=== PATIENT | female | born 1990 | race Caucasian/White ===

== ENCOUNTER 2016-08-10 10:37 | Inpatient (IN) | payer OTHER ==
[~2016-08-10] VITALS: Ht 167.6 cm; Wt 84.5 kg
[2016-08-10] VITALS (15 sets, daily range): BP systolic 99–135; BP diastolic 57–88; PULSE 71–94; RESP 16–19; Ht 167.6 cm; Wt 84.5 kg
[~2016-08-10 10:37] MED LIST: DENIES MEDS; IBUP800T25 PO
[2016-08-10] MEDS ORDERED: LACTATED RINGER'S 1,000 ML IV SCH (10:40)
[2016-08-10] MEDS ORDERED: METHYLERGONOVINE 0.2 MG INJ IM PRN ×2 (11:00→21:00)
[2016-08-10] MEDS ORDERED: CEFAZOLIN 2 GM/50 ML (PMX) 50 ML IV SCH (11:00)
[2016-08-10] MEDS ORDERED: CARBOPROST 250 MCG INJ IM PRN ×2 (11:00→21:00)
[2016-08-10] MEDS ORDERED: OXYTOCIN 30 UNITS/LR 500 ML IV SCH (11:00)
[2016-08-10] MEDS ORDERED: OXYTOCIN 30 UNITS/LR 500 ML IV PRN ×2 (11:00→21:00)
[2016-08-10] MEDS ORDERED: MISOPROSTOL 200 MCG TAB PR PRN ×2 (11:00→21:00)
[2016-08-10] MEDS ORDERED: DEXAMETHASONE 4 MG/ML 1 ML INJ ONE (11:29)
[2016-08-10] MEDS ORDERED: METOCLOPRAMIDE 10 MG INJ ONE (11:29)
[2016-08-10] MEDS ORDERED: morphine SULFATE/PF (10 MG/10 ML) INJ ONE (11:29)
[2016-08-10] MEDS ORDERED: KETOROLAC 30 MG INJ ONE (11:29)
[2016-08-10] MEDS ORDERED: OXYTOCIN 10 UNIT INJ ONE (11:29)
[2016-08-10] MEDS ORDERED: PHENYLephrine (100 MCG/ML) 5ML SYG ONE ×4 (11:29→16:14)
[2016-08-10] MEDS ORDERED: ONDANSETRON 4 MG INJ ONE (11:29)
[2016-08-10 11:42] LABS: ADD SCAN DIFF NO
[2016-08-10 11:58] LABS: INR 0.91; PROTIME 12.3 Sec (12.2-14.2)
[2016-08-10 12:00] LABS: PARTIAL THROMBOPLASTIN TIME 29.7 Sec (25.0-35.0)
[2016-08-10 12:12] LABS: BASOPHILS % 0.3 % (0.0-2.0); EOSINOPHILS # 0.1 10^3/ul (0.0-0.5); EOSINOPHILS % 0.7 % (0.0-7.0); HEMATOCRIT 36.2 % (37.0-47.0); HEMOGLOBIN 11.6 g/dl (12.0-16.0); LYMPHOCYTES # 2.7 10^3/ul (0.8-2.9); LYMPHOCYTES % 30.4 % (15.0-51.0); MEAN CORPUSCULAR HEMOGLOBIN 28.4 pg (29.0-33.0); MEAN CORPUSCULAR VOLUME 88.5 fl (82.0-101.0); MEAN PLATELET VOLUME 10.3 fl (7.4-10.4); MONOCYTE # 0.7 10^3/ul (0.3-0.9); MONOCYTES % 7.4 % (0.0-11.0); NEUTROPHIL # 5.4 10^3/ul (1.6-7.5); NEUTROPHILS % 60.9 % (39.0-77.0); PLATELET COUNT 300 10^3/UL (140-415); RED BLOOD COUNT 4.09 10^6/ul (4.20-5.40); RED CELL DISTRIBUTION WIDTH 15.7 % (11.5-14.5); WHITE BLOOD COUNT 8.9 10^3/ul (4.8-10.8)
[2016-08-10] MEDS ORDERED: ONDANSETRON 4 MG INJ IV STA (13:22)
[2016-08-10] MEDS ORDERED: CITRIC ACID/NA CITRATE 30 ML CUP PO ONE (13:30)
[2016-08-10 14:10] LABS: BARBITURATES Negative (NEGATIVE); BENZODIAZEPINES Negative (NEGATIVE); CANNABINOIDS Negative (NEGATIVE)
[2016-08-10 14:12] LABS: COCAINE Negative (NEGATIVE); OPIATES Negative (NEGATIVE)
[2016-08-10] MEDS ORDERED: NALOXONE (0.4 MG/ML) INJ IV PRN (16:30)
[2016-08-10] MEDS ORDERED: ONDANSETRON 4 MG INJ IV PRN (16:30)
[2016-08-10] MEDS ORDERED: HYDROmorphONE 1 MG/ML SYG IV PRN ×2 (16:30)
[2016-08-10] MEDS ORDERED: morphine 2 MG INJ IV PRN (16:30)
[2016-08-10] MEDS ORDERED: PROCHLORPERAZINE 10 MG INJ IV PRN (16:30)
[2016-08-10] MEDS ORDERED: morphine 4 MG/ML VIAL IV PRN (16:30)
[2016-08-10] MEDS: DIPHENHYDRAMINE 50 MG INJ IV PRN (17:16)
--- NOTE | 2016-08-10 17:41 | HP ---
Date/Time of Note Date/Time of Note DATE: 08/10/16 TIME: 17:39 OB - History Hx of Present Free Text/Dictation admitted for repeat C/S at term Last Menstrual Period: Jan 23, 2016 Estimated Due Date: Aug 09, 2016 : 2 Para: 1 Care: Good Care Ultrasounds: Normal mid trimester US Obstetrical Complications: None Medical Complications: None Past Family/Social History * Past Medical, Surgical, Family and Obstetric Histories reviewed from chart. Blood Type: O+ Rubella: immune RPR/VDRL: Negative GBS Status: Negative HBsAG: Negative OB Admission Exam Vital Signs Vital Signs Vital Signs Date Time Temp Pulse Resp B/P Pulse Ox O2 Delivery O2 Flow Rate FiO2 08/10/16 16:55 77 16 113/72 100 Room Air 08/10/16 16:40 97.7 Physical Exam HEENT: WNL Heart: Rhythm Normal Lungs: Clear, Equal Abdomen: WNL Extremities: Normal Reflexes: Normal Cervical Dilatation: None Effacement: 0% Station: -3 Membranes: Intact Heart Rate: 140's Accelerations: Accelerations Present Decelerations: No Decelerations Varibility: Moderate Contractions on Admission: None Last 72 hours Lab Results CBC & BMP 08/10/16 10:45 OB Assessment/Plan Other Assessment: term gestation previous C/S X 1 Other plan: repeat C/S JERARDO LOPES MD Aug 10, 2016 17:41
--- NOTE | 2016-08-10 17:45 | OPR ---
Operative Report Planned Procedure Procedure date Aug 10, 2016 Procedure(s) repeat C/S Performed by: JERARDO LOPES MD Assisting provider: JANNA CHRISTINE MD Anesthesiologist: CHRIS BALDERRAMA MD Pre-procedure diagnosis term gestation previous C/S X 1 Anesthesia Type: spinal Procedure Description Under satisfactory anaesthesia a Pfannenstiel incision was made two fingerbreadth above and parallel to the symphysis of pubis around the previous scar and previous scar was removed Incision was extended laterally to the border of the Recti muscles on either sides. Incision was carried down with sharp and blunt dissection until fascia was reached. Anterior Recti muscle fascia was incised in mid portion and incision extended laterally to the border of skin incision. Fascia was mobilized from muscle superiorly and Recti muscles were from midline using sharp and blunt dissection. Peritoneum was visualized; Avoiding bowel and bladder it was incised . Incision was extended superiorly and inferiorly. Bladder blade was placed. Posterior peritoneum covering the lower segment of the uterus and lower segment of the uterus were incised.Low transverse uterine incision was made on lower segment of the uterus. Incision extended laterally to the border of Round Lig. on either sides and baby was delivered from OT. position . Amniotic fluid appeared clear. Cord blood was obtained and cord had 3 vessels . Placenta was delivered spontaneously and appeared intact and complete. Intrauterine cavity was rubbed with a laparotomy sponge. Uterine incision was closed in 2 layers using running stitches of No1 Monocryl. Hemostasis appeared secure. Ovaries and Fallopian tubes were within normal limits. Announcing needle, lap sponge and instrument count to be correct abdomen was closed in layers as follows: Peritoneum and Recti muscles with running stitches of 20 Vicryl. Fascia with running stitch of No 1 PDS. Subcutaneous tissue with running stitches of 20 Chromic and skin was closed using suzan. Patient tolerated the procedure well and was transferred to [facility] in good condition. Post-Procedure Post-procedure diagnosis S/P C/S Findings: Live Baby Specimen removed: No Complications: None Pt Condition post procedure: stable Disposition: PACU Physician Certification I, the undersigned physician, hereby certify that I have discussed the procedure described in this consent form with this patient (or the patient's legal access services representative), including: * The risk and benefits of the procedure; * Any adverse reactions that may reasonably be expected to occur; * Any alternative efficacious methods of treatment which may be medically viable ; * The potential problems that may occur during recuperation; * Potential for blood transfusion and associated risks/benefits; and * Any research or economic interest I may have regarding this treatment. I further certify that the patient/legally responsible person was encouraged to ask question and that all questions were answered. JERARDO LOPES MD Aug 10, 2016 17:45
[2016-08-10] MEDS: LACTATED RINGER'S 1,000 ML IV SCH ×2 (20:40→23:30)
[2016-08-10] MEDS ORDERED: NA PHOSPHATE/BIPHOS 133 ML ENEMA PR PRN (21:00)
[2016-08-10] MEDS ORDERED: ACETAMINOPHEN/CODEINE #3 TAB PO PRN (21:00)
[2016-08-10] MEDS ORDERED: LANOLIN 7 GM TUBE TOP PRN (21:00)
[2016-08-10] MEDS: CEFAZOLIN 2 GM/50 ML (PMX) 50 ML IV SCH (21:57)
[2016-08-10] MEDS: SENNA/DOCUSATE NA (8.6MG/50MG) TAB PO SCH (21:57)
[2016-08-10] MEDS: KETOROLAC 30 MG INJ IV PRN (22:25)
[2016-08-10] MEDS: CLINDAMYCIN 300 MG CAP PO SCH (23:46)
[2016-08-11] MEDS: DIPHENHYDRAMINE 50 MG INJ IV PRN (01:19)
[2016-08-11 03:45] VITALS: BP 123/70; PULSE 91; RESP 18
[2016-08-11] MEDS: CEFAZOLIN 2 GM/50 ML (PMX) 50 ML IV SCH ×2 (05:14→12:27)
[2016-08-11] MEDS: CLINDAMYCIN 300 MG CAP PO SCH ×4 (05:14→23:40)
[2016-08-11 06:25] VITALS: BP 124/66; PULSE 80; RESP 18
[2016-08-11] MEDS: SENNA/DOCUSATE NA (8.6MG/50MG) TAB PO SCH ×2 (08:24→20:15)
[2016-08-11] MEDS: LACTATED RINGER'S 1,000 ML IV SCH ×2 (08:24→20:40)
[2016-08-11] MEDS: KETOROLAC 30 MG INJ IV PRN (08:25)
[2016-08-11 08:30] VITALS: BP 107/64; PULSE 84; RESP 18
[2016-08-11 08:50] LABS: ADD SCAN DIFF NO
[2016-08-11 08:59] LABS: BASOPHILS % 0.3 % (0.0-2.0); EOSINOPHILS % 0.1 % (0.0-7.0); HEMATOCRIT 30.6 % (37.0-47.0); HEMOGLOBIN 9.9 g/dl (12.0-16.0); LYMPHOCYTES # 2.8 10^3/ul (0.8-2.9); LYMPHOCYTES % 20.1 % (15.0-51.0); MEAN CORPUSCULAR HEMOGLOBIN 28.8 pg (29.0-33.0); MEAN CORPUSCULAR HGB CONC 32.4 g/dl (32.0-37.0); MEAN PLATELET VOLUME 10.4 fl (7.4-10.4); MONOCYTE # 0.9 10^3/ul (0.3-0.9); MONOCYTES % 6.1 % (0.0-11.0); NEUTROPHIL # 10.2 10^3/ul (1.6-7.5); PLATELET COUNT 280 10^3/UL (140-415); RED BLOOD COUNT 3.44 10^6/ul (4.20-5.40); RED CELL DISTRIBUTION WIDTH 14.9 % (11.5-14.5); WHITE BLOOD COUNT 13.9 10^3/ul (4.8-10.8)
[2016-08-11] MEDS ORDERED: BISACODYL 10 MG SUPP PR ONE (09:00)
[2016-08-11 12:00] VITALS: BP 100/62; PULSE 83; RESP 19
[2016-08-11 15:20] VITALS: BP 101/57; PULSE 84; RESP 18
[2016-08-11] MEDS: OXYCODONE/ACETAMINOPHEN (5/325) TAB PO PRN ×2 (15:54→20:15)
--- NOTE | 2016-08-11 16:41 | PN ---
Date/Time of Note Date/Time of Note DATE: 08/11/16 TIME: 16:39 Assessment/Plan VTE Prophylaxis VTE Prophylaxis Intervention: ambulation Lines/Catheters IV Catheter Type (from Nrsg): Peripheral IV Assessment/Plan Assessment/Plan POD # 1 S/P C/S will advance diet and ambulate Subjective 24 Hr Interval Summary NO BM Passing flatus Constitutional: BM, ambulates, flatus, improved, no complaints, urine output Pain Control: well controlled Exam/Review of Systems Vital Signs Vitals Vital Signs Date Time Temp Pulse Resp B/P Pulse Ox O2 Delivery O2 Flow Rate FiO2 08/11/16 15:20 98.3 84 18 101/57 Room Air 08/10/16 19:30 99 Intake and Output 08/10/16 08/10/16 08/11/16 15:00 23:00 07:00 Intake Total 250 ml 950 ml Output Total 600 ml 250 ml 550 ml Balance -600 ml 0 ml 400 ml Exam Free Text/Dictation abdomen: soft BS + Incision: covered Constitutional: alert, oriented, well developed Psych: nl mood/affect, no complaints Head: atraumatic, normocephalic Eyes: EOMI, nl conjunctiva, nl lids, nl sclera ENMT: mucosa pink and moist, nl external ears & nose, nl lips & teeth, nl nasal mucosa & septum Neck: non-tender, supple Respiratory: clear to auscultation, normal air movement Cardiovascular: nl pulses, regular rate and rhythm Gastrointestinal: nl liver, spleen, non-tender, soft Musculoskeletal: nl extremities to inspection, nl gait and stance Extremities: normal pulses 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
[2016-08-11 20:15] VITALS: BP 107/62; PULSE 86; RESP 18
[2016-08-11] MEDS: IBUPROFEN 800 MG TAB PO SCH (21:49)
[2016-08-12] MEDS: OXYCODONE/ACETAMINOPHEN (5/325) TAB PO PRN ×2 (03:48→20:33)
[2016-08-12 03:50] VITALS: BP 102/58; PULSE 85; RESP 18
[2016-08-12] MEDS: LACTATED RINGER'S 1,000 ML IV SCH (04:40)
[2016-08-12] MEDS: IBUPROFEN 800 MG TAB PO SCH ×3 (05:59→22:27)
[2016-08-12] MEDS: CLINDAMYCIN 300 MG CAP PO SCH ×4 (05:59→23:42)
[2016-08-12] MEDS: SENNA/DOCUSATE NA (8.6MG/50MG) TAB PO SCH ×2 (08:26→20:32)
[2016-08-12 08:58] VITALS: BP 105/59; PULSE 83; RESP 18
[2016-08-12 10:13] LABS: ADD SCAN DIFF NO
[2016-08-12 10:19] LABS: BASOPHILS % 0.4 % (0.0-2.0); EOSINOPHILS # 0.1 10^3/ul (0.0-0.5); EOSINOPHILS % 1.1 % (0.0-7.0); HEMATOCRIT 30.4 % (37.0-47.0); HEMOGLOBIN 9.6 g/dl (12.0-16.0); LYMPHOCYTES # 2.4 10^3/ul (0.8-2.9); LYMPHOCYTES % 32.2 % (15.0-51.0); MEAN CORPUSCULAR HEMOGLOBIN 28.6 pg (29.0-33.0); MEAN CORPUSCULAR HGB CONC 31.6 g/dl (32.0-37.0); MEAN CORPUSCULAR VOLUME 90.5 fl (82.0-101.0); MEAN PLATELET VOLUME 10.3 fl (7.4-10.4); MONOCYTE # 0.6 10^3/ul (0.3-0.9); MONOCYTES % 8.7 % (0.0-11.0); NEUTROPHIL # 4.2 10^3/ul (1.6-7.5); NEUTROPHILS % 57.2 % (39.0-77.0); PLATELET COUNT 242 10^3/UL (140-415); RED BLOOD COUNT 3.36 10^6/ul (4.20-5.40); RED CELL DISTRIBUTION WIDTH 15.4 % (11.5-14.5); WHITE BLOOD COUNT 7.4 10^3/ul (4.8-10.8)
--- NOTE | 2016-08-12 10:30 | OPPN ---
Date/Time of Note Date/Time of Note DATE: 08/12/16 TIME: 10:30 Post-Anesthesia Notes Post-Anesthesia Note Activity: WNL Respiratory function: WNL Cardiovascular function: WNL Mental status: Baseline Pain reasonably controlled: Yes Hydration appropriate: Yes Nausea/Vomiting absent: Yes CHRIS BALDERRMAA MD Aug 12, 2016 10:30
--- NOTE | 2016-08-12 13:18 | DS ---
Date/Time of Note Date/Time of Note home next day DATE: 08/12/16 TIME: 13:16 Obstetrical Discharge Record Final Diagnosis Final Diagnosis: Term delivered Other Final Diagnosis S/P C/S Section Section: Repeat Condition on Discharge Physical Assessment Last Vitals: see nurses notes Voiding: Yes Bowel Movement: Yes Breast: Soft, non-tender, Filling Fundus: Firm Abdomen and Incision: soft BS + Incision: healing well Episiotomy: NA Calf Tenderness: No Patient Condition: Good JERARDO LOPES MD Aug 12, 2016 13:18
--- NOTE | 2016-08-12 13:19 | DS ---
Date/Time of Note Date/Time of Note DATE: 08/12/16 TIME: 13:18 Discharge Summary Admission/Discharge Info Admit Date/Time Aug 10, 2016 at 10:37 Discharge Date/Time 26 y/o female had repeat C/S Final Diagnosis S/P C/S Patient Condition: Good Procedures C/S Hx of Present Illness 26 y/o female had repeat C/S Hospital Course uncomplicated Home Meds Active Scripts Ibuprofen* (Motrin*) 800 Mg Tab, 800 MG PO Q6H Y for PAIN AND OR ELEVATED TEMP, #30 TAB Prov:DAILY PERALTA DO 06/19/15 Reported Medications [Denies Meds] No Conflict Check 03/25/13 [Denies Meds] No Conflict Check 09/01/10 Follow-up Plan 2-3 days for staple removal Pending Labs Laboratory Tests Test 08/12/16 09:30 White Blood Count 7.410^3/ul (4.8-10.8) Red Blood Count 3.3610^6/ul (4.20-5.40) Hemoglobin 9.6g/dl (12.0-16.0) Hematocrit 30.4% (37.0-47.0) Mean Corpuscular Volume 90.5fl (82.0-101.0) Mean Corpuscular Hemoglobin 28.6pg (29.0-33.0) Mean Corpuscular Hemoglobin Concent 31.6g/dl (32.0-37.0) Red Cell Distribution Width 15.4% (11.5-14.5) Platelet Count 09388^3/UL (140-415) Mean Platelet Volume 10.3fl (7.4-10.4) Neutrophils % 57.2% (39.0-77.0) Lymphocytes % 32.2% (15.0-51.0) Monocytes % 8.7% (0.0-11.0) Eosinophils % 1.1% (0.0-7.0) Basophils % 0.4% (0.0-2.0) Nucleated Red Blood Cells % 0.0/100WBC (0.0-0.0) Neutrophils # 4.210^3/ul (1.6-7.5) Lymphocytes # 2.410^3/ul (0.8-2.9) Monocytes # 0.610^3/ul (0.3-0.9) Eosinophils # 0.110^3/ul (0.0-0.5) Basophils # 0.010^3/ul (0.0-0.1) Nucleated Red Blood Cells # 0.010^3/ul (0.0-0.0) JERARDO LOPES MD Aug 12, 2016 13:19
--- NOTE | 2016-08-12 13:55 | PD.PPDC ---
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
[2016-08-12] MEDS ORDERED: Oxycodone/Acetamin (5/325) PO (13:56)
[2016-08-12] MEDS ORDERED: IBUP800T25 PO ×2 (13:56→13:58)
[2016-08-12 15:19] VITALS: BP 99/60; PULSE 84; RESP 16
[2016-08-12 20:30] VITALS: BP 111/59; PULSE 86; RESP 18
[2016-08-13 04:00] VITALS: BP 98/52; PULSE 83; RESP 18
[2016-08-13] MEDS: CLINDAMYCIN 300 MG CAP PO SCH ×2 (05:44→11:42)
[2016-08-13] MEDS: IBUPROFEN 800 MG TAB PO SCH (05:44)
[2016-08-13 07:35] VITALS: BP 124/70; PULSE 83; RESP 18
[2016-08-13] MEDS ORDERED: DIPHTH/TET/ACEL PERTUSS (ADULT) 0.5 ML VIAL IM* ONE (09:00)
[2016-08-13] MEDS: SENNA/DOCUSATE NA (8.6MG/50MG) TAB PO SCH (09:04)
[2016-08-13] MEDS: OXYCODONE/ACETAMINOPHEN (5/325) TAB PO PRN (09:12)
== END 2016-08-13 13:40 | disposition home or self-care (01) | DRG 766 ==
LOC: L-D 10:37 → PP1 20:00
PROVIDERS: ADMIT Obstetrics & Gynecology; ATTEND Obstetrics & Gynecology
PROC: 10D00Z1 Extraction of Products of Conception, Low, Open Approach (ICD-10-PCS; principal; 2016-08-10 12:30)
DX: O34.211 Maternal care for low transverse scar from previous cesarean delivery (principal); Z37.0 Single live birth; Z3A.38 38 weeks gestation of pregnancy
CPT/HCPCS: 80307; 85025; 85610; 85730; 86592; 86850; 86900; 86901; 87340; 90715; 99464; J0690; J1100; J1200; J1885; J2274; J2370; J2405; J2590; J2765; J7120

== ENCOUNTER 2016-09-25 05:51 | Emergency (ER) | payer OTHER ==
[~2016-09-25] VITALS: Ht 167.6 cm; Wt 85.0 kg
[~2016-09-25 05:51] MED LIST changes: -DENIES MEDS; +Oxycodone/Acetamin (5/325) PO
[2016-09-25 06:00] VITALS: Ht 167.6 cm; Wt 85.0 kg
[2016-09-25] MEDS ORDERED: ONDANSETRON 4 MG INJ IV STA (06:21)
[2016-09-25] MEDS ORDERED: SOD CHLORIDE 0.9% 1,000 ML IV ONE (06:30)
[2016-09-25 06:51] LABS: ADD SCAN DIFF NO
[2016-09-25 06:53] LABS: BASOPHILS % 0.6 % (0.0-2.0); EOSINOPHILS # 0.1 10^3/ul (0.0-0.5); EOSINOPHILS % 1.4 % (0.0-7.0); HEMATOCRIT 39.3 % (37.0-47.0); HEMOGLOBIN 12.7 g/dl (12.0-16.0); LYMPHOCYTES % 56.4 % (15.0-51.0); MEAN CORPUSCULAR HEMOGLOBIN 28.6 pg (29.0-33.0); MEAN CORPUSCULAR HGB CONC 32.3 g/dl (32.0-37.0); MEAN CORPUSCULAR VOLUME 88.5 fl (82.0-101.0); MEAN PLATELET VOLUME 10.1 fl (7.4-10.4); MONOCYTE # 0.4 10^3/ul (0.3-0.9); MONOCYTES % 5.7 % (0.0-11.0); NEUTROPHIL # 2.6 10^3/ul (1.6-7.5); NEUTROPHILS % 35.8 % (39.0-77.0); PLATELET COUNT 285 10^3/UL (140-415); RED BLOOD COUNT 4.44 10^6/ul (4.20-5.40); WHITE BLOOD COUNT 7.1 10^3/ul (4.8-10.8)
[2016-09-25 07:07] LABS: ALBUMIN 4.1 g/dl (3.3-4.9)
[2016-09-25 07:08] LABS: POTASSIUM 4.2 mmol/L (3.5-5.1)
[2016-09-25 07:10] LABS: ALBUMIN/GLOBULIN RATIO 1.2; CREATININE 0.77 mg/dl (0.44-1.00); TOTAL PROTEIN 7.5 g/dl (6.1-8.1)
[2016-09-25 07:11] LABS: CALCIUM 9.7 mg/dl (8.4-10.2)
--- NOTE | 2016-09-25 07:31 | RADRPT ---
PROCEDURE: Abdominal Ultrasound (right upper quadrant). CLINICAL INDICATION: Abdominal pain TECHNIQUE: Multiple real-time longitudinal and transverse images of the right upper quadrant of th e abdomen were acquired utilizing a curved array transducer. Images were reviewed on a high-resoluti on PACS workstation. COMPARISON: None FINDINGS: The liver is normal in size and echogenicity. No focal masses are identified. There is no evidenc e of intra or extrahepatic ductal dilatation. The common bile duct measures 3.2 mm in diameter. Gal lstones are identified within the gallbladder. There is no gallbladder wall thickening. The visualized portions of the pancreas are unremarkable with obscuration of the tail of the pancrea s. No free fluid is identified. There is no evidence of right hydronephrosis or renal calcification. The right kidney measures 9.9 cm in length. The visualized portions of the aorta and inferior vena cava are within normal limits. IMPRESSION: 1. Cholelithiasis. 2. Otherwise unremarkable right upper quadrant ultrasound. RPTAT: AA .Jadon Brown MD, Date Time Electronically viewed and signed by .Jadon Brown MD, MD on 09/25/2016 07:31 .B/
[2016-09-25 08:02] LABS: ADD UMIC YES; URINE BILIRUBIN (Dip) NEGATIVE (NEGATIVE); URINE BLOOD (Dip) NEGATIVE (NEGATIVE); URINE COLOR LT. YELLOW (YELLOW); URINE GLUCOSE (Dip) NEGATIVE (NEGATIVE); URINE KETONES (Dip) NEGATIVE (NEGATIVE); URINE LEUKOCYTE ESTERASE (Dip) 1+ (NEGATIVE); URINE NITRITE (Dip) NEGATIVE (NEGATIVE); URINE TOTAL PROTEIN (Dip) NEGATIVE (NEGATIVE); URINE UROBILINOGEN (Dip) 0.2 E.U./dL (0.1-1.0)
[2016-09-25 08:18] LABS: URINE RBCS NONE SEEN /HPF (0)
[2016-09-25] MEDS ORDERED: HYDR-906 PO (08:38)
[2016-09-25] MEDS ORDERED: ONDA4TAB14 PO (08:38)
[2016-09-25] MEDS ORDERED: DICY10CA60 PO (08:38)
[2016-09-25 08:45] VITALS: BP 114/70; PULSE 76; RESP 20; TEMP 98.3
--- NOTE | 2016-09-25 08:46 | ERD ---
ER Documentation Chief Complaint Date/Time DATE: 09/25/16 TIME: 08:40 Chief Complaint Epigastric pain with vomiting HPI 26-year-old female patient with no significant past medical history presents the ED complaining of epigastric pain associated with vomiting that started 1 week ago. Reports that she had a few episodes of nonbilious nonbloody vomiting. Describes the pain as achy and rates it a 4 out of 10. States that she is a . Denies any fever, chills, shortness of breath, wheezing, cough. Patient reports that her last menses was 2 weeks ago. ROS All systems reviewed and are negative except as per history of present illness. Medications Home Meds Active Scripts Ondansetron (Ondansetron Odt) 4 Mg Tab.rapdis, 4 MG PO Q6H Y for NAUSEA AND/OR VOMITING, #10 TAB Prov:LINNEA GARCIA PA-C 09/25/16 Dicyclomine Hcl* (Bentyl*) 10 Mg Capsule, 10 MG PO QID, #20 CAP Prov:LINNEA GARCIA PA-C 09/25/16 Hydrocodone/Acetaminophen ([place] 5-325 Tablet) 1 Each Tablet, 1 TAB PO QHS Y for PAIN, #7 TAB Prov:LINNEA GARCIA PA-C 09/25/16 Ibuprofen* (Motrin*) 800 Mg Tab, 800 MG PO Q6H Y for PAIN AND OR ELEVATED TEMP, #30 TAB 0 Refills Prov:JERARDO LOPES MD 08/12/16 [Oxycodone/Acetamin (5/325)] 1 TAB TAB No Conflict Check, 2 TAB PO Q4H Y for PAIN LEVEL 6-10, #30 0 Refills Prov:JERARDO LOPES MD 08/12/16 Ibuprofen* (Ibuprofen*) 800 Mg Tablet, 800 MG PO Q8, #20 TAB 0 Refills Prov:JERARDO LOPES MD 08/12/16 Allergies Allergies: Coded Allergies: No Known Allergies (Verified Allergy, Mild, 03/25/13) PMhx/Soc Medical and Surgical Hx: pt denies Medical Hx History of Surgery: Yes (C SECTION) Anesthesia Reaction: No Hx Neurological Disorder: No Hx Respiratory Disorders: No Hx Cardiac Disorders: No Hx Psychiatric Problems: No Hx Miscellaneous Medical Probl: Yes (PT IS CURRENTLY BREAST FEEDING) Hx Alcohol Use: No Hx Substance Use: No Hx Tobacco Use: Yes Smoking Status: Never smoker Physical Exam Vitals Vital Signs Date Time Temp Pulse Resp B/P Pulse Ox O2 Delivery O2 Flow Rate FiO2 09/25/16 08:45 98.3 76 20 114/70 98 Room Air 09/25/16 06:00 96.5 75 20 111/74 100 Physical Exam Const: Ayc-[id number], well-nourished. In no acute distress. Head: Atraumatic, normocephalic Eyes: Normal Conjunctiva without injection. No purulent discharge. ENT: Normal external ear, nose. Moist oropharynx without tonsillar exudates. Non -erythematous pharynx. Uvula midline. No drooling. No trismus. Neck: No cervical midline tenderness. Full range of motion. No meningismus. No cervical lymphadenopathy. No JVD. Resp: Clear to auscultation bilaterally. No wheezing, rhonchi, rales, or crackles. No accessory muscle use. No retractions. Cardio: Regular rate and rhythm. No murmurs, rubs or gallops. Abd: Soft, epigastric and right upper quadrant tenderness, non distended. Normal bowel sounds. No palpable masses. No rebound tenderness. No guarding. Negative McBurney's point. Negative psoas sign. Negative obturator sign. Skin: No petechiae or rashes Back: No midline tenderness. No CVA tenderness. Ext: No cyanosis, or edema. Neur: Awake and alert. Normal gait. Normal coordination. Psych: Normal Mood and Affect Result Diagram: 09/25/16 0630 09/25/16 0630 Results 24 hrs Laboratory Tests Test 09/25/16 06:30 White Blood Count 7.110^3/ul Red Blood Count 4.4410^6/ul Hemoglobin 12.7g/dl Hematocrit 39.3% Mean Corpuscular Volume 88.5fl Mean Corpuscular Hemoglobin 28.6pg Mean Corpuscular Hemoglobin Concent 32.3g/dl Red Cell Distribution Width 13.0% Platelet Count 79575^3/UL Mean Platelet Volume 10.1fl Neutrophils % 35.8% Lymphocytes % 56.4% Monocytes % 5.7% Eosinophils % 1.4% Basophils % 0.6% Nucleated Red Blood Cells % 0.0/100WBC Neutrophils # 2.610^3/ul Lymphocytes # 4.010^3/ul Monocytes # 0.410^3/ul Eosinophils # 0.110^3/ul Basophils # 0.010^3/ul Nucleated Red Blood Cells # 0.010^3/ul Urine Color LT. YELLOW Urine Clarity CLEAR Urine pH 6.0 Urine Specific [place] >=1.030 Urine Ketones NEGATIVE Urine Nitrite NEGATIVE Urine Bilirubin NEGATIVE Urine Urobilinogen 0.2 E.U./dL Urine Leukocyte Esterase 1+ Urine Microscopic RBC NONE SEEN/HPF Urine Microscopic WBC 5-10/HPF Urine Epithelial Cells FEW Urine Hemoglobin NEGATIVE Urine Glucose NEGATIVE% Urine Total Protein NEGATIVE Sodium Level 141mmol/L Potassium Level 4.2mmol/L Chloride Level 100mmol/L Carbon Dioxide Level 30mmol/L Anion Gap 15 Blood Urea Nitrogen 16mg/dl Creatinine 0.77mg/dl Glucose Level 87mg/dl Calcium Level 9.7mg/dl Total Bilirubin 0.0mg/dl Direct Bilirubin 0.00mg/dl Indirect Bilirubin 0.0mg/dl Aspartate Amino Transf (AST/SGOT) 149IU/L Alanine Aminotransferase (ALT/SGPT) 276IU/L Alkaline Phosphatase 120IU/L Total Protein 7.5g/dl Albumin 4.1g/dl Globulin 3.40g/dl Albumin/Globulin Ratio 1.20 Lipase 164U/L Current Medications Medications (Trade) Dose Ordered Sig/John Route PRN Reason Start Time Stop Time Status Last Admin Dose Admin Sodium Chloride (NS) 1,000 ml @ 1,000 mls/hr Q1H ONCE IV 09/25/16 06:30 09/25/16 07:29 DC 09/25/16 06:47 Ondansetron HCl (Zofran Inj) 4 mg ONCE STAT IV 09/25/16 06:21 09/25/16 06:24 DC 09/25/16 06:47 Procedures/MDM This is a 26-year-old female patient with no significant past medical history presents to the ED complaining of epigastric pain associated with vomiting. Patient is afebrile and nontoxic-appearing. Patient has normal vital signs. Patient has epigastric and right upper quadrant tenderness, patient was further worked up with CBC, CMP, lipase, UA, urine , gallbladder ultrasound. Patient's pain and symptoms have improved after treatment with 4 mg IV Zofran, 1 L normal saline. CBC: No leukocytosis. No e/o of systemic infection. No e/o anemia. CMP: No e/o severe acidosis, alkalosis, renal failure, diabetic ketoacidosis, liver disease Lipase within normal limits. Urine: No leukocyte esterase, no nitrites, no hematuria. Urine : negative PROCEDURE: Abdominal Ultrasound (right upper quadrant). CLINICAL INDICATION: Abdominal pain TECHNIQUE: Multiple real-time longitudinal and transverse images of the right upper quadrant of the abdomen were acquired utilizing a curved array transducer. Images were reviewed on a high-resolution PACS workstation. COMPARISON: None FINDINGS: The liver is normal in size and echogenicity. No focal masses are identified. There is no evidence of intra or extrahepatic ductal dilatation. The common bile duct measures 3.2 mm in diameter. Gallstones are identified within the gallbladder. There is no gallbladder wall thickening. The visualized portions of the pancreas are unremarkable with obscuration of the tail of the pancreas. No free fluid is identified. There is no evidence of right hydronephrosis or renal calcification. The right kidney measures 9.9 cm in length. The visualized portions of the aorta and inferior vena cava are within normal limits. IMPRESSION: 1. Cholelithiasis. 2. Otherwise unremarkable right upper quadrant ultrasound. Patient has cholelithiasis. No leukocytosis. No elevated bilirubin. Slightly elevated liver enzymes. This could be nonspecific and could be secondary to fatty liver. Low suspicion for choledocholithiasis, cholecystitis, pancreatitis , gallstone pancreatitis, or other emergent conditions. A differential diagnosis considered includes but is not limited to gastritis, GERD, peptic ulcer disease, cholecystitis, choledocholithiasis, cholangitis, pancreatitis, appendicitis, bowel obstruction, ileus, volvulus, nephrolithiasis, pyelonephritis, hepatitis, perforated viscus, diverticulitis, abdominal hernia, acute abdomen, mesenteric ischemia or other emergent conditions. 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 Instructed patient to return to the ED sooner for any worsening symptoms. Patient's questions were answered. Patient understood and agreed with discharge plan. Patient discharged stable. Departure Diagnosis: Primary Impression: Cholelithiasis Cholelithiasis location: other site Biliary obstruction: without biliary obstruction Qualified Code: K80.80 - Biliary calculus of other site without obstruction Condition: Stable Patient Instructions: Gallstones Referrals: GIOVANNI BRUNER M.D., MATTHEW A. MD [facility] YOU HAVE RECEIVED A MEDICAL SCREENING EXAM AND THE RESULTS INDICATE THAT YOU DO NOT HAVE A CONDITION THAT REQUIRES URGENT TREATMENT IN THE EMERGENCY DEPARTMENT. FURTHER EVALUATION AND TREATMENT OF YOUR CONDITION CAN WAIT UNTIL YOU ARE SEEN IN YOUR DOCTORS OFFICE WITHIN THE NEXT 1-2 DAYS. IT IS YOUR RESPONSIBILITY TO MAKE AN APPOINTMENT FOR FOLOW-UP CARE. IF YOU HAVE A PRIMARY DOCTOR --you should call your primary doctor and schedule an appointment IF YOU DO NOT HAVE A PRIMARY DOCTOR YOU CAN CALL OUR PHYSICIAN REFERRAL HOTLINE AT IF YOU CAN NOT AFFORD TO SEE A PHYSICIAN YOU CAN CHOSE FROM THE FOLLOWING [facility] [address] [facility] [address] [facility] [address] [facility] [address] [facility] [address] [facility] [address] [address] [address]. [facility] [address]. [facility] YOU HAVE RECEIVED A MEDICAL SCREENING EXAM AND THE RESULTS INDICATE THAT YOU DO NOT HAVE A CONDITION THAT REQUIRES URGENT TREATMENT IN THE EMERGENCY DEPARTMENT. FURTHER EVALUATION AND TREATMENT OF YOUR CONDITION CAN WAIT UNTIL YOU ARE SEEN IN YOUR DOCTORS OFFICE WITHIN THE NEXT 1-2 DAYS. IT IS YOUR RESPONSIBILITY TO MAKE AN APPOINTMENT FOR FOLOW-UP CARE. IF YOU HAVE A PRIMARY DOCTOR --you should call your primary doctor and schedule and appointment IF YOU DO NOT HAVE A PRIMARY DOCTOR YOU CAN CALL OUR PHYSICIAN REFERRAL HOTLINE AT . IF YOU CAN NOT AFFORD TO SEE A PHYSICIAN YOU CAN CHOSE FROM THE FOLLOWING [facility] INSTITUTIONS: [facility] [address] [place] [address] [facility] [address] [place] [address] [facility] [address] [place] [address] [facility]CIALT[facility] Additional Instructions: Call your primary care doctor TOMORROW for an appointment during the next 1-2 days for a referral to a general surgeon.See the doctor sooner or return here if your condition worsens before your appointment time. LINNEA GARCIA PA-C September 25, 2016 08:46
== END 2016-09-25 08:46 | disposition home or self-care (01) ==
LOC: FTE 05:51
DX: K80.80 Other cholelithiasis without obstruction (principal); R11.10 Vomiting, unspecified
CPT/HCPCS: 76705; 80053; 81001; 83690; 85025; 87086; J2405; J7030; 36415; 81003; 96374

== ENCOUNTER 2017-10-07 02:59 | Emergency (ER) | END 2017-10-07 07:43 | disposition home or self-care (01) ==